=== PATIENT | male | born 2000 | race Caucasian/White ===

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

== ENCOUNTER 2018-05-02 13:28 | Emergency (ER) | payer OTHER ==
--- NOTE | 2018-05-02 13:57 | ED Physician Documentation ---
Abdominal Pain - HISTORIAN Historian: patient - HPI Stated Complaint: R abd pain Chief Complaint: Abdominal Pain Additonal Information: 17yo white male with a one day history of abd pain in the RLQ area. No precipitating factor noted. No modifying factors noted. No fever or chills noted. No nausea or vomiting noted. Is s/p appendectomy. Onset: days ago Duration: constant Timing: better Context: denies: out of country travel, bad food Severity: mild Quality: sharp, stabbing Associated Symptoms: none. denies: fever, chills, nausea, vomiting, coffee ground emesis, diarrhea, bloody stools, grossly bloody stools, testicular pain Exacerbated by: nothing Relieved by: nothing - ROS CONST: no problems GI/: none. denies: constipation CVS/RESP: none - SOCIAL HX Smoking History: non-smoker Alcohol Use: none Drug Use: none - FAMILY HX Family History: no significant history - PAST HX Past History: none. denies: peptic ulcer, bladder infection Surgeries/Procedures: appendectomy Home Medications: Ambulatory Orders Medication Instructions Recorded NK [NK] 09/12/17 Allergies/Adverse Reactions: Allergies Allergy/AdvReac Type Severity Reaction Status Date / Time No Known Drug Allergies Allergy Verified 05/02/18 13:46 - VITAL SIGNS Vital Signs: Vital Signs Temp Pulse Resp BP Pulse Ox 84 19 122/63 98 05/02/18 13:35 05/02/18 13:35 05/02/18 13:35 05/02/18 13:35 - REVIEWED ASSESSMENTS Nursing Assessment Reviewed: Yes Vitals Reviewed: Yes ED Results Lab/Radiology - Lab Results Lab Results: Lab Results 05/02/18 05/02/18 14:10 14:10 WBC 5.70 K/ul K/ul (4.00-12.00) RBC 4.58 M/ul M/ul (3.90-5.20) Hgb 14.1 g/dL g/dL (12.0-18.0) Hct 41.7 % % (37.0-53.0) MCV 91.2 fl fl (80.0-100.0) MCH 30.9 pg pg (28.0-34.0) MCHC 33.9 g/dL g/dL (30.0-36.0) RDW 11.9 % % (11.3-14.3) Plt Count 253 K/mm3 K/mm3 (130-400) Neut % (Auto) 65.2 % % (39.0-79.0) Lymph % (Auto) 23.4 % % (16.0-50.0) [place] % (Auto) 5.3 % % (0.0-11.0) Eos % (Auto) 3.7 % % (0.0-6.8) Baso % (Auto) 0.3 (0.0-1.5) Neut # (Auto) 3.7 # k/uL # k/uL (1.4-7.7) Lymph # (Auto) 1.3 # k/uL # k/uL (0.6-4.0) [place] # (Auto) 0.3 # k/uL # k/uL (0.0-0.9) Eos # (Auto) 0.2 # k/uL # k/uL (0.0-0.6) Baso # (Auto) 0.0 # k/uL # k/uL (0.0-0.5) Reactive Lymphs % 2.1 % % (0.0-5.0) Reactive Lymphs # 0.1 # k/uL # k/uL (0.0-0.8) Sodium 143 mmol/L mmol/L (136-145) Potassium 4.0 mmol/L mmol/L (3.5-5.1) Chloride 103 mmol/L mmol/L (98-107) Carbon Dioxide 28 mmol/L mmol/L (22-30) BUN 9 mg/dL mg/dL (9-20) Creatinine 0.70 mg/dL mg/dL (0.66-1.25) Estimated Creat Clear 157 Est GFR ( Amer) > 60 (60 - ) Est GFR (Non-Af Amer) > 60 (60 - ) Glucose 73 mg/dL L mg/dL (74-106) Calcium 9.3 mg/dL mg/dL (8.4-10.2) Total Bilirubin 0.2 mg/dL mg/dL (0.2-1.3) AST 17 U/L U/L (15-46) ALT 27 U/L U/L (13-69) Alkaline Phosphatase 79 U/L U/L (38-126) Total Protein 7.5 g/dL g/dL (6.3-8.2) Albumin 4.6 g/dL g/dL (3.5-5.0) - Orders Orders: ED Orders Category Date Time Status ABD SERIES PA CHEST [RAD] Stat Exams 05/02/18 Taken CBC/PLATELET/DIFF Routine Lab 05/02/18 14:10 Completed CMP Routine Lab 05/02/18 14:10 Completed URINALYSIS Routine Lab 05/02/18 13:59 Ordered Abdominal Pain Physical Exam - Physical Exam General Appearance: alert, mild distress NECK: normal inspection, thyroid normal, supple. No: lymphadenopathy, stiff neck RESPIRATORY: no resp distress, chest non-tender, breath sounds normal. No: wheezes, rales, rhonchi CVS: reg rate & rhythm, heart sounds normal, equal pulses, no murmur, no gallop ABDOMEN: soft, no organomegaly, normal bowel sounds, no abdominal bruit, no distension, tenderness (mild RLQ pain, no guarding or rebound tenderness noted.) BACK: normal inspection, no CVA tenderness SKIN: warm/dry, normal color NEURO: oriented X3, CN's nml as tested, mood/affect nml, cognition normal Vital Signs: Vital Signs Temp Pulse Resp BP Pulse Ox 84 19 122/63 98 05/02/18 13:35 05/02/18 13:35 05/02/18 13:35 05/02/18 13:35 Discharge Clincal Impression: Abdominal pain Qualifiers: Abdominal location: right lower quadrant Qualified Code(s): R10.31 - Right lower quadrant pain Referrals: Primary Doctor,No [Primary Care Provider] - 2 Days Additional Instructions: Drink a lot of fluids. Take some [place] (OTC) once a day as needed for constipation. Condition: Stable Disposition: 01 HOME, SELF-CARE Decision to Admit: NO Date of Decison to Admit: 05/02/18 Decision Time: 15:24
[2018-05-02 14:16] LABS: BASOPHILS % 0.3 (0.0-1.5); EOSINOPHILS % 3.7 % (0.0-6.8); MEAN CORPUSCULAR HEMOGLOBIN 30.9 pg (28.0-34.0); MEAN CORPUSCULAR VOLUME 91.2 fl (80.0-100.0); MONOCYTES % 5.3 % (0.0-11.0); NEUTROPHILS # 3.7 # k/uL (1.4-7.7)
[2018-05-02 14:31] LABS: eGFR (African) > 60; eGFR (Non-African) > 60
--- NOTE | 2018-05-02 15:48 | Diagnostic Imaging Report ---
TERESE HILARIO [facility] [address] [facility] [address] [address] Report Submission Date: May 02, 2018 3:26:58 PM CDT Patient Study Name: IGNACIO RIGGINS Date: May 02, 2018 2:53:50 PM CDT Modality Type: DX Gender: M Description: ABDOMEN : 89 Institution: [facility] Physician: TERESE HILARIO Examination: Obstruction series History: RLQ ABD PAIN X 1 DAY (Hx) Findings: 4 views obtained of the chest and abdomen. Numerous air filled loops of large small bowel. No abnormal dilation of the large or small bowel. No suspicious calcification projecting over the renal fossa or the lower pelvic region. Osseous structures are appropriate for age. Single view the chest without focal infiltrative process. No blunting of the costophrenic margin. Impression: Air filled loops of large and small bowel. No obstruction. No focal infiltrate or effusion. No suspicious calcifications by plain film sensitivity. Electronically signed on May 02, 2018 3:26:58 PM CDT by: Eamon MILLAN
[2018-05-02 15:55] VITALS: BP 118/66
[2018-05-03 08:43] LABS: APPEARANCE,URINE CLOUDY (CLEAR); COLOR,URINE YELLOW (YELLOW); OCCULT BLOOD,URINE NEGATIVE (NEGATIVE)
== END 2018-05-02 15:53 | disposition home or self-care (01) ==
LOC: ED 13:28
DX: R10.31 Right lower quadrant pain (principal)
CPT/HCPCS: 74022; 80053; 81002; 85025; 99284